=== PATIENT | male | born 1975 | race African-American/Black ===

== ENCOUNTER 2023-11-06 10:04 | Outpatient (REF) | payer MEDICARE, SELFPAY ==
[2023-11-06 11:35] LABS: MANUAL DIFF FLAG NO
[2023-11-06 12:02] LABS: Basophils Percent Auto 0.3 % (0-2); Eosinophils Absolute Auto 0.1 X10*3/uL (0.0-0.4); Eosinophils Percent Auto 1.3 % (0-4); Hematocrit 50.5 % (42.0-52.0); Hemoglobin 15.5 g/dl (14.0-18.0); Imm Gran Abs Auto 0.02 X10*3/uL (0.00-0.03); Imm Gran Pct Auto 0.3 % (0.0-0.4); Lymphocytes Absolute Auto 2.1 X10*3/uL (1.2-4.9); Lymphocytes Percent Auto 30.5 % (20-40); Mean Corpuscular HGB Conc 30.7 g/dl (31.0-36.0); Mean Corpuscular Hemoglobin 21.5 pg (27.0-33.0); Mean Corpuscular Volume 70.1 fL (80.0-98.0); Monocytes Absolute Auto 0.5 X10*3/uL (0.1-1.2); Monocytes Percent Auto 7.5 % (2-11); Neutrophils Absolute Auto 4.2 x10*3/uL (2.0-8.3); Neutrophils Percent Auto 60.1 % (45-73); Platelet Count 287 X10*3/uL (160-400); Red Cell Distribution Width 18.5 % (11.0-16.0)
[2023-11-06 12:24] LABS: Alanine Aminotransferase 16 U/L (0-40); Albumin Level 4.4 g/dL (3.5-5.0); Alkaline Phosphatase 122 U/L (39-117); Anion Gap 13 (12-20); Aspartate Amino Transferase 13 U/L (5-37); Bilirubin Total 0.6 mg/dL (0.0-1.0); Blood Urea Nitrogen 12 mg/dL (9-16); Calcium 9.6 mg/dL (8.4-10.2); Carbon Dioxide 27 mmol/L (22-29); Chloride 103 mmol/L (96-108); Cholesterol 212 mg/dL (<200); Estimated Glomerular Filt Rate > 60; Glucose Random 123 mg/dL (60-115); HDL Cholesterol 52 mg/dL (>40); LDL Cholesterol Calculated 139 mg/dL (<100); Potassium 4.4 mmol/L (3.3-5.1); Sodium 139 mmol/L (135-145); Total Protein 7.5 g/dL (6.5-8.0); Triglycerides 106 mg/dL (<150)
[2023-11-06 13:18] LABS: Creatinine Urine 86.52 mg/dL; Microalbum/Creatinine Ratio Ur 18.4 ug/mg cr (<30)
== END 2023-11-06 10:05 | disposition home or self-care (01) ==
LOC: HO.HHCL 10:04
PROVIDERS: Visit Provider Internal Medicine Geriatric Medicine
DX: Z00.00 Encounter for general adult medical examination without abnormal findings (principal); E11.9 Type 2 diabetes mellitus without complications
CPT/HCPCS: 36415; 80053; 80061; 82043; 82570; 85025

== ENCOUNTER → 2024-01-01 14:15 | Outpatient (BNVA) | payer MEDICARE, SELFPAY | PROVIDERS: PCP Internal Medicine Geriatric Medicine; Visit Provider Nurse Practitioner Family | DX: Z12.11 Encounter for screening for malignant neoplasm of colon (principal); Z86.010 Personal history of colon polyps | CPT/HCPCS: 99212 ==

== ENCOUNTER 2024-04-16 10:12 | Day surgery (SDC) | payer MEDICARE, SELFPAY ==
[2024-04-16 10:52] VITALS: BMI 36.4
--- NOTE | 2024-04-16 10:55 | P.HPSUR_ITS ---
Pre-Procedural Eval Section A - 24 Hr Update-Section A only Date of Service: 04/16/24 Section B - Complete if H&P > 30 days Chief Complaint: Encounter for screening for malignant neoplasm of Relevant Family History (Specify if Yes): No Relevant Social History: None Present Medications: see Short Stay Collaborative assessment Medical History: Significant History (DM) History of Previous Operations: Relevant previous surgery/procedure and date(s) ( Hx of colonoscopy) Allergies: Allergies Allergy/AdvReac Type Severity Reaction Status Date / Time No Known Allergies Allergy Verified 04/16/24 10:50 [No Known Allergies*] Review of Systems Sugical H&P ROS: Negative: Constitution, Cardiovascular, Respiratory, Neurological, Psychiatric, Hem-Onc, Allergic/Immunologic, Gastrointestinal, Genitourinary, Musculoskeletal, Integumentary, Endocrine and Eyes/E ars/Nose/Throat Exam Surgical H&P Exam: Normal: HEENT, Normal: Heart, Normal: Lungs, Normal: Extremities, Normal: Abdomen, Normal: Skin and Normal: Neurological Plan Diagnosis/Plan: Unchanged I have reviewed the history and physical and performed a pertinent physical examination on my patient. No changes have occurred unless specified. Time Spent With Patient Time: Total time managing care of this patient today ____ minutes.
[2024-04-16 11:23] VITALS: BP 158/92; PULSE 72; RESP 18; TEMP 36.3; O2SAT 97
[2024-04-16] MEDS: Lactated Ringers 1,000 ML 100 ML IVCONT (11:23)
[2024-04-16 11:37] LABS: Glucose, Whole Blood 168 mg/dL (60-115)
--- NOTE | 2024-04-16 11:58 | HO.ANESPROP2 ---
[facility] Past Medical History Medical History Diabetes Family History Family history of problems with anesthesia: No Surgical History Surgical History Hx of colonoscopy History of Problems with Anesthesia: No Social History Social History Patient Tobacco Use Status: Never used Tobacco Use of substances other than those prescribed or required for medical reasons: No Are you DNR?: No Advance Directives: No Advance Directives Information Provided: Yes Meds Allergies Allergy/AdvReac Type Severity Reaction Status Date / Time No Known Allergies Allergy Verified 04/16/24 10:50 [No Known Allergies*] Active Medications: Current Medications Lactated Ringer's (Lr) 1,000 mls @ 100 mls/hr IVCONT .Q10H [place] Last Admin: 04/16/24 11:23 Dose: 100 mls/hr Home Medications ?Medication ?Instructions ?Recorded ?Confirmed ?Last Taken ?Type empagliflozin 25 mg tablet 25 mg PO QAM 01/01/24 04/12/24 History (Jardiance) metformin 1,000 mg tablet 1,000 mg PO BID 01/01/24 Unknown History Exam Height,Weight and Vital Signs: Height 5 ft 9 in Weight 111.811 kg Last Vital Signs Temp 97.4 F 04/16/24 11:23 Pulse 72 04/16/24 11:23 Resp 18 04/16/24 11:23 BP 158/92 H 04/16/24 11:23 Pulse Ox 97 04/16/24 11:23 O2 Del Method Room Air 04/16/24 11:23 Pertinent Lab Results Pertinent Lab Results: Laboratory Tests 04/16/24 11:28 POC Glucose 168 H Airway Mallampati Class: II TM Dist: >3cm Neck ROM: Full Heart: rrr Lungs: cta Assessment and Plan Assessment Anesthesia Assessment: Anesthesia Plan Discussed and Chart Reviewed Final Anesthetic Review Family History of Problems with Anesthesia: No History of Problems with Anesthesia: No NPO: Yes ASA Class: II Final Preanesthetic Review: No Changes in Pt Med Stat, Meds/Allgs Chart Reviewed and Consent Obtained/Reviewed Patient Risk: Low Procedure Risk: Low Anesthetic Plan Anesthetic Plan: MAC:
--- NOTE | 2024-04-16 13:06 | HO.OPN-COLON ---
Colonoscopy Operative Note Operative Note Date of Service: 04/16/24 Narrative: Operative Information Procedure Description: Colonoscopy Indication: screening Anesthesia: MAC COLONOSCOPY Instrument: Olympus variable stiffness ADULT scope 190L Colonoscopy Monitoring: Vital signs and clinical assessment, continuous EKG monitoring, Pulse oximetry, Carbon Dioxide monitoring and blood pressure monitoring were done throughout the procedure. Colon withdrawal time was 15 minutes. Procedure: The patient was placed in the left lateral decubitis position and pre-procedure medications were administered. After a digital rectal examination of the ano-rectum, the video colonoscope was inserted into the rectum and advanced through the colon to the cecum/TI. The colonoscope was slowly withdrawn in a retrograde panoramic fashion and the colon mucosa was carefully examined including a retroflexed view of the rectum. Findings and interventions are described below. Procedure Difficulty: easy Findings: Terminal Ileum-normal Cecum:normal Ascending Colon: 15 mm sessile polyp, lifted with eleview and removed with cold snare, then x 2 clips applied for hemostasis Transverse Colon -normal Descending Colon:normal Sigmoid Colon: moderate diverticulosis Rectum: Retroflexion with small internal hemorrhoids seen, grade I Anorectum - normal Intervention: eleview injection, cold snare and clips Colon preparation: [place] Bowel Preparation Scale Right colon; 2 Transverse colon: 2 Left colon; 2 (0 = Unprepared colon segment with mucosa not seen due to solid stool that cannot be cleared. 1 = Portion of mucosa of the colon segment seen, but other areas of the colon segment not well seen due to staining, residual stool and/or opaque liquid. 2 = Minor amount of residual staining, small fragments of stool and/or opaque liquid, but mucosa of colon segment seen well. 3 = Entire mucosa of colon segment seen well with no residual staining, small fragments of stool or opaque liquid) Impression and Post Procedure Diagnosis: diverticulosis colon polyp internal hemorrhoids Plan: High fiber diet leaflet Avoid straining at stool, epsom salts and sitz bath, anusol supps or cream Repeat Colonoscopy in 1-2 years due to large polyp in mid ascending colon or earlier if clinically indicated Above findings were reviewed with the patient and relevant handouts were provided if indicated.
[2024-04-16 13:08] VITALS: BP 122/65; PULSE 81; RESP 18; TEMP 36.1; O2SAT 95
[2024-04-16 13:13] VITALS: BP 121/65; PULSE 73; RESP 18; O2SAT 96
[2024-04-16 13:18] VITALS: BP 118/68; PULSE 70; RESP 18; O2SAT 96
[2024-04-16 13:23] VITALS: BP 112/65; PULSE 72; RESP 18; TEMP 36.6; O2SAT 99
== END 2024-04-16 13:53 | disposition home or self-care (01) ==
PROVIDERS: PCP Internal Medicine Geriatric Medicine; Visit Provider Internal Medicine Gastroenterology
PROC: 0DJD8ZZ Inspection of Lower Intestinal Tract, Via Natural or Artificial Opening Endoscopic (ICD-10-PCS; CPT 45378; principal; 2024-04-16 11:50)
DX: Z12.11 Encounter for screening for malignant neoplasm of colon (principal); Z86.010 Personal history of colon polyps; D12.2 Benign neoplasm of ascending colon; K57.30 Diverticulosis of large intestine without perforation or abscess without bleeding; K64.0 First degree hemorrhoids; E11.9 Type 2 diabetes mellitus without complications; Z79.84 Long term (current) use of oral hypoglycemic drugs
CPT/HCPCS: 45385; 45381; 82947; 88305; J2704

== ENCOUNTER → 2024-04-16 10:12 | Outpatient (BNV) | payer MEDICARE, SELFPAY | PROVIDERS: PCP Internal Medicine Geriatric Medicine; Visit Provider Internal Medicine Gastroenterology | DX: Z12.11 Encounter for screening for malignant neoplasm of colon (principal); K63.5 Polyp of colon; K57.30 Diverticulosis of large intestine without perforation or abscess without bleeding; K64.0 First degree hemorrhoids | CPT/HCPCS: 45381; 45385 ==

== ENCOUNTER 2024-12-11 07:57 | Outpatient (REF) | payer MEDICARE, SELFPAY ==
--- OUTSIDE RECORDS SUMMARY | 2024-12-11 08:04 | XMS_ITS | Encounter Summary ---
Author Organization [facility] Address [address] [place] [address] 7 [place] [address] Care Team Providers Care Solar Fabrication Technician Name Role Phone Name, Eugenio ANDERSON Primary Care Provider [phone] Reason for Visit * Reason Onset Date Comments Med Refill 10/24/2023 Encounter Details Date Type Department Care Team (Late st Contact Info) Description 10/24/2023 Refill [facility] [address] [place] [phone] NameEugenio MD [address] [place] [phone] Social History Tobacco Use Types Packs/Day Years Used Date Smoking Tobacco: Never Assessed Sex and Gender Information Value Date Recorded Sex Assigned at Male 08/14/2022 10:20 AM EDT Legal Sex Male 10:20 AM EDT Gender Identity Male 08/14/2022 10:20 AM EDT Sexual Orientation Straight 08/14/2022 10 :20 AM EDT documented as of this encounter Plan of Treatment Upcoming Encounters Date Type Department Care Team (Late st Contact Info) Description 12/15/2024 2:45 PM EST Office Visit [facility] [address] [place] [phone] Eugenio Parry MD [address] [place] [phone] documented as of this encounter Visit Diagnoses Not on filedocumented in this encounter Care Teams Solar Fabrication Technician Relationship Specialty Start Date End Date NameEugenio MD [address] [place] [phone] PCP - General Family Medicine 12/30/20 documented as of this encounter
--- OUTSIDE RECORDS SUMMARY | 2024-12-11 08:04 | XMS_ITS | Encounter Summary ---
Author Organization [employer] Address [address] [facility] 7t [place] [address] Care Team Providers Care Travel Accommodation Inspector Name Role Phone Name, Eugenio ANDERSON Primary Care Provider [phone] Reason for Visit * Reason Onset Date Comments Med Refill 10/30/2023 Encounter Details Date Type Department Care Team ([facility] st Contact Info) Description 10/30/[address] [facility] [address] [place], [place] [phone] Name, MD Eugenio [address] [place] [address] Social History Tobacco Use Types Packs/Day Years Used Date Smoking Tobacco: Never Assessed Housing Stability Answer Date Recorded What is your housing situation today? I have loy ceja 10/31/[address] you li ve. Do you have problems with any of the following? None of the above 10/31/2023 Food Insecurity Answer Date Recorded Within the past 12 months, y ou worried that your food would run out before you got money to buy more: Never True 10/31/2023 Within the past 12 months,th e food you bought just didn't last and you didn't have enough money to get more: Never True Transportation Answer Date Recorded In the past 12 months, has l ack of transportation kept you from medical appts, meetings, work or from getting things needed for daily living? No 10/31/2023 Utilities Answer Date Recorded In the past 12 months, has t he electric, gas, oil or water company threatened to shut off services in your home? No 10/31/2023 Sex and Gender Information Value Date Recorded Sex Assigned at Male 08/14/2022 10:20 AM EDT Legal Sex Male 10:20 AM EDT Gender Identity Male 08/14/2022 10:20 AM EDT Sexual Orientation Straight 08/14/2022 10 :20 AM EDT documented as of this encounter Plan of Treatment Upcoming Encounters Date Type Department Care Team (Late st Contact Info) Description 12/15/2024 2:45 PM EST Office Visit [facility] [address] [place] [phone] Name, MD Eugenio [address] [place] [phone] documented as of this encounter Visit Diagnoses Not on filedocumented in this encounter Care Teams Travel Accommodation Inspector Relationship Specialty Start Date End Date Name, MD Eugenio [address] [place] [phone] PCP - General Family Medicine 12/30/20 documented as of this encounter
--- OUTSIDE RECORDS SUMMARY | 2024-12-11 08:04 | XMS_ITS | Encounter Summary ---
Author Organization [facility] Address [address] [facility] 7t [place] [address] Care Team Providers Care Porter Marina Name Role Phone Name, Eugenio ANDERSON Primary Care Provider [phone] Reason for Visit * Reason Comments Med Refill Encounter Details Date Type Department Care Team ([facility] st Contact Info) Description 11/20/2024 Refill [facility] [address] [place], [place] [phone] Name, MD Eugenio [address] [place] [address] Social History Tobacco Use Types Packs/Day Years Used Date Smoking Tobacco: Never Smokeless Tobacco: Never Alcohol Use Standard Drinks/Week Comments Never 0 (1 standard drink = 0.6 oz pur e alcohol) Depression Answer Date Recorded Patient Health Questionnaire-9 Score 0 11/06/2023 Patient Health Questionnaire-9 Score 0 11/06/2023 Last PHQ-9: Questionnaire Data Not on file 0 11/06/2023 Housing Stability Answer Date Recorded What is [...] off services in your home? No 10/31/2023 Depression Answer Date Recorded Patient Health Questionnaire-2 Score 0 11/06/2023 Sex and Gender Information Value Date Recorded Sex Assigned at Male 08/14/2022 10:20 AM EDT Legal Sex Male 10:20 AM EDT Gender Identity Male 08/14/2022 10:20 AM EDT Sexual Orientation Straight 08/14/2022 10 :20 AM EDT documented as of this encounter Plan of Treatment Upcoming Encounters Date Type Department Care Team (Late st Contact Info) Description 12/15/2024 2:45 PM EST Office Visit [facility] [address] [place] [phone] Name, MD Eugenio [address] [place] [phone] documented as of this encounter Visit Diagnoses Not on filedocumented in this encounter Additional Health Concerns Assessment Noted Time PHQ-9 Depression Total Score: 0 11/06/19 24 9:27 AM EST documented as of this encounter Care Teams Porter Marina Relationship Specialty Start Date End Date NameEugenio MD [address] [place] [phone] PCP - General Family Medicine 12/30/20 documented as of this encounter
--- OUTSIDE RECORDS SUMMARY | 2024-12-11 08:04 | XMS_ITS | Encounter Summary ---
Author Organization [employer] Address [address] [facility] 7t [place] [address] Care Team Providers Care Circulation Librarian Name Role Phone Name, Eugenio ANDERSON Primary Care Provider Encounter Details Date Type Department Care Team (Late st Contact Info) Description 04/24/2023 Orders Only [facility] [address] [place] [address] Kathryn West LPN Social History Tobacco Use Types Packs/Day Years [...] Description 12/15/2024 2:45 PM EST Office Visit [facility] [address] [place] [address] Eugenio Parry MD [address] [place] [address] documented as of this encounter Visit Diagnoses Not on filedocumented in this encounter Care Teams Circulation Librarian Relationship Specialty Start Date End Date Eugenio Parry MD [address] [place] [address] PCP - General Family Medicine 12/30/20 documented as of this encounter
--- OUTSIDE RECORDS SUMMARY | 2024-12-11 08:04 | XMS_ITS | Encounter Summary ---
Author Organization [facility] Address [address] [place] [address] 7t [place] [address] Care Team Providers Care Tamping Machine Operator Road Forms Name Role Phone Name, Eugenio ANDERSON Primary Care Provider [phone] Encounter Details Date Type Department Care Team (Late st Contact Info) Description 03/19/2023 Abstract [facility] [address] [place] [phone] NameEugenio MD [address] [place] [phone] Social History Tobacco Use Types Packs/Day Years [...] Description 12/15/2024 2:45 PM EST Office Visit [facility] [address] [place] [address] [phone] NameEugenio MD [address] [place] [address] [phone] documented as of this encounter Procedures Procedure Name Priority Date/Time Associated Diagnosis Comments COLONOSCOPY Routine 07/03/2017 12:39 PM EDT documented in this encounter Results * Colonoscopy (07/03/2017 12:39 PM EDT) Colonoscopy Normal Normal Narrative Ann King - 07/03/2017 12:39 PM EDT Recommended 5 year follow up us Historical Provider HEALTH MAINTENANCE Final Result documented in this encounter Visit Diagnoses Not on filedocumented in this encounter Care Teams Tamping Machine Operator Road Forms Relationship Specialty Start Date End Date Name, MD Eugenio [address] [place] [address] PCP - General Family Medicine 12/30/20 documented as of this encounter
--- OUTSIDE RECORDS SUMMARY | 2024-12-11 08:04 | XMS_ITS | Clinical Summary ---
Author Organization [employer] Address [address] [facility] 7t [place] [address] Care Team Providers Care Dry Kiln Loader Name Role Phone Name, Eugenio ANDERSON Primary Care Provider [phone] Allergies No known active allergies Medications metFORMIN (Glucophage) 1000 MG tablet TAKE 1 TABLET BY MOUTH TWICE A DAY WITH BREAKFAST AND DINNER 180 tablet 3 09/15/20 24 Active Jardiance 25 MG TAKE 1 TABLET BY MOUTH EVERY DAY IN THE MORNING 30 tablet 11 11/20/19 25 Active empagliflozin (Jardiance) 25 MG Take 1 tablet (25 mg) by mouth in the morning. 30 tablet 11 11/06/19 24 025 Discontinued Active Problems Problem Noted Date Diagnosed Date Hypercholesterolemia 11/06/2023 11/06/2023 Tubular adenoma 11/06/2023 Overview (11/06/2023): Removed by colonoscopy [place] [facility] Essential hypertension 05/10/2016 4 Plantar fasciitis 05/10/2016 11/06/2023 Type 2 diabetes mellitus 05/10/2016 024 Encounters Date Type Department Care Team Description 12/05/2024 Patient Outreach [facility] [address] [place] [address] Eugenio Parry MD Pre-visit Planning (SDOH negative, Tobacco screening negative. ) 11/20/2024 Refill [facility] [address] [place] [address] Eugenio Parry MD 09/13/2024 Refill [facility] [address] [place], [place] [phone] Name, MD Eugenio from Last 3 Months Immunizations Name Administration Dates Next Due Influenza injectable quadrivalent preservative f ree 07/22/2015 Influenza, IIV3, injectable 07/22/2015, 4 Tdap 06/22/2010 Social History Tobacco Use Types Packs/Day Years Used Date Smoking Tobacco: Never Smokeless Tobacco: Never Tobacco Cessation:Counseling Given: Not Answered Alcohol Use Standard Drinks/Week Comments Never 0 (1 standard drink = 0.6 oz pur e alcohol) Depression Answer Date Recorded Patient Health Questionnaire-9 Score 0 11/06/2023 Patient Health Questionnaire-9 Score 0 11/06/2023 Last PHQ-9: Questionnaire Data Not on file 0 11/06/2023 Housing Stability Answer Date Recorded What is your housing situation today? I have loy ceja 12/05/[address] you li ve. Do you have problems with any of the following? None of the above 12/05/2024 Food Insecurity Answer Date Recorded Within the past 12 months, y ou worried that your food would run out before you got money to buy more: Never True 12/05/2024 Within the past 12 months,th e food you bought just didn't last and you didn't have enough money to get more: Never True Transportation Answer Date Recorded In the past 12 months, has l ack of transportation kept you from medical appts, meetings, work or from getting things needed for daily living? No 12/05/2024 Utilities Answer Date Recorded In the past 12 months, has t he electric, gas, oil or water company threatened to shut off services in your home? No 12/05/2024 Depression Answer Date Recorded Patient Health Questionnaire-2 Score 0 11/06/2023 Internet Access Answer Date Recorded Internet Access Q1 Yes 12/05/2024 Internet Access Q2 Not on file 12/05/2024 Sex and Gender Information Value Date Recorded Sex Assigned at Male 08/14/2022 10:20 AM EDT Legal Sex Male 10:20 AM EDT Gender Identity Male 08/14/2022 10:20 AM EDT Sexual Orientation Straight 08/14/2022 10 :20 AM EDT Last Filed Vital Signs Vital Sign Reading Time Taken Comments Blood Pressure 161/82 01/08/2024 3:41 PM EDT Pulse 85 01/08/2024 3:41 PM EDT Temperature 36.2 ??C (97.1 ??F) 01/08/2024 3:41 PM ED T Respiratory Rate 16 01/08/2024 3:41 PM EDT Oxygen Saturation 98% 01/08/2024 3:41 PM EDT Inhaled Oxygen Concentration - - Weight 113 kg (249 lb 6.4 oz) 03/27/2024 10:01 A M EDT Height 179.5 cm (5' 10.67 ) 03/27/2024 10:01 AM EDT Body Mass Index 35.11 03/27/2024 10:01 AM EDT Plan of Treatment Upcoming Encounters Date Type Department Care Team (Late st Contact Info) Description 12/15/2024 2:45 PM EST Office Visit [facility] [address] [place], [place] [phone] Name, MD Eugenio [address] [place] [address] Health Maintenance Due Date Last Done Comments CT Colonography 1975 FIT DNA/Cologuard 1975 FIT 1975 FOBT 1975 HIV Screening 1975 Sigmoidoscopy 1975 Eye Exam 1985 Alcohol/Substance Use Screening 1987 Family Planning (PISQ) 1990 Hepatitis C Screening 1993 Hepatitis B Vaccines (1 of 3 - 19+ 3-dose series) 1994 Pneumococcal Vaccine: Pediatrics (0 to 5 Years) and At-Risk Patients (6 to 49) Years) (1 of 2 - PCV) 1994 DTaP/Tdap/Td Vaccines (2 - Td or Tdap) 06/22/2020 06/22/2010 Diabetes: Hemoglobin A1C 02/05/2024 11/06/2023 COVID-19 Vaccine (3 - season) 2024 03/24/2021, 03/03/2021 Influenza Vaccine (#1) 2024 5, 07/22/2015, 07/21/2014 Depression Screening 11/06/2024 11/06/2023, 11/06/19 24 Diabetes: Urine Protein Screening 11/06/2024 11/06/2023, 02/24/2022, 12/29/2020 Lipid Panel 11/06/2024 11/06/2023, 02/12, 05/30/2021, Additional history exists Diabetes: Foot Exam 01/07/2025 01/08/2024, 01/08/2024, 01/08/2024, Additional history exists Tobacco Screening 01/07/2025 01/08/2024 Zoster Vaccines (1 of 2) 2025 SDOH Screening 12/05/2025 12/05/2024 Colonoscopy 04/16/2026 04/16/2024, 07/03/2017 Colorectal Cancer Screening 04/16/2026 RSV Patients and Patients Aged 60 years or older (1 - 1-dose 75+ series) 2050 HIB Vaccines Aged Out No longer eligi ble based on patient's age to complete this topic HPV Vaccines Aged Out No longer eligi ble based on patient's age to complete this topic Hepatitis A Vaccines Aged Out No long er eligible based on patient's age to complete this topic IPV Vaccines Aged Out No longer eligi ble based on patient's age to complete this topic Meningococcal Vaccine Aged Out No hayden zenobia eligible based on patient's age to complete this topic RSV under 20 months Aged Out No longe r eligible based on patient's age to complete this topic Rotavirus Vaccines Aged Out No longer eligible based on patient's age to complete this topic Procedures Procedure Name Priority Date/Time Associated Diagnosis Comments HM COLONOSCOPY Routine 04/16/2024 ALBUMIN, RANDOM URINE W/CREATININE Routine 11/06/2023 10:06 AM EST Type 2 diabetes mellitus without complication, without long-term current use of insulin (CMS/[facility]) PE (physical exam), annual LIPID PANEL, STANDARD Routine 11/06/2023 10:06 AM EST Type 2 diabetes mellitus without complication, without long-term current use of insulin (CMS/[facility]) PE (physical exam), annual POCT GLYCATED HEMOGLOBIN, TOTAL Routine 11/06/2023 9:59 AM EST Type 2 diabetes mellitus without complication, without long-term current use of insulin ([facility]) PE (physical exam), annual from Last 3 Months or Most Recently Relevant to Health Maintenance Results * (ABNORMAL) Colonoscopy (04/16/2024) Colonoscopy Abnormal(A ) Normal us Eugenio Parry MD HEALTH MAINTENANCE Final Result * Albumin, Random Urine W/Creatinine (11/06/2023 10:06 AM EST) Pathologist [facility] Creatinine, Urine 86.52 mg/dL [facility] Microalbumin Urine 16.0 mg/L [facility] Microalbum Creatinine Ratio Ur 18.4 <30 ug/mg cr [facility] Comment:Albumin/Creatinine R atio Reference Ranges: Normal: < 30 ug/mg creatinine Microalbuminuria: 30 - 300 ug/mg creatinineClinical Albuminuria: > 300 ug/mg creatinine Urine (Urine, Random) 11/06/2023 10:06 AM EST 11/06/2023 11:23 AM EST us Eugenio Parry MD LAB URINE ORDERABLES Final Resul t [facility] [address] [place] [phone] * (ABNORMAL) Lipid Panel, Standard (11/06/2023 10:06 AM EST) Triglycerides 106 <150 mg/dL [facility] Comment:Desirable Triglyceri de: less than 150 mg/dLBorderline High Triglyceride 150-199 mg/dLHigh Triglyceride: 200-499 mg/dLVery High Triglyceride: greater than or equal to 5OO mg/dL Cholesterol 212(H) <200 mg/dL [facility] Comment:Desirable Cholestero l: less than 200 mg/dLBorderline High Cholesterol: 200-239 mg/dLHigh Cholesterol: greater than 239 mg/dL LDL Cholesterol Calculated 139(H) <100 mg/dL [facility] Comment:Desirable LDL: less than 100 mg/dLNear Optimal/Above Optimal LDL: 110- 129 mg/dLBorderline High LDL: 130-159 mg/dLHigh LDL: 160-189 mg/dLVery High LDL: greater than or equal to 190 mg/dL HDL Cholesterol 52 >40 mg/dL [facility] Comment:Desirable HDL: great er than 40 mg/dL Note: This HDL assay may give artificially low results in patients with liver disease. Blood Venous blood specimen / Unknown 11/06/2023 10:06 AM EST 11/06/2023 11:27 AM EST us Eugenio Parry MD LAB BLOOD ORDERABLES Final Resul t Performing Organization Address City/State/[facility] Co de Phone Number [facility] [address] [place] [phone] * (ABNORMAL) POCT HGB A1C (11/06/2023 9:59 AM EST) Hemoglobin A1C 8.8(A) 4.0 - 6.0 % Other 11/06/2023 9:59 AM EST us Eugenio Parry MD POINT OF CARE TEST ENTER/EDIT OR DERABLES Final Result from Last 3 Months or Most Recently Relevant to Health Maintenance Insurance [facility] Care Teams Dry Kiln Loader Relationship Specialty Start Date End Date Name, MD Eugenio [address] [place] [phone] PCP - General Family Medicine 12/30/20
--- OUTSIDE RECORDS SUMMARY | 2024-12-11 08:04 | XMS_ITS | Encounter Summary ---
Author Organization [employer] Address [address] [facility] [address] [place] [address] Care Team Providers Care Secretarial Stenographer Name Role Phone Name, Eugenio ANDERSON Primary Care Provider [phone] Reason for Visit * Reason Comments Pre-visit Planning SDOH negative, Tobac co screening negative. Encounter Details Date Type Department Care Team ([facility] Contact Info) Description 12/05/2024 Patient Outreach [facility] [address] [place] [address] Name, MD Eugenio [address] [place] [address] Pre-visit Planning (SDOH negative, Tobacco screening negative. ) Social History Tobacco Use Types Packs/Day Years [...] AM EDT documented as of this encounter Progress Notes * Suha Wylie - 12/05/2024 11:39 AM EST CC Suha Leblanc placed successful outbound call to patient for pre-visit planning. Patient name and confirmed. Patient confirms appt date and time, and has transportation arrangements. Biggest concern for appointment at this time is no concerns. Appropriate screenings completed in anticipation ofappointment. documented in this encounter Plan of Treatment Upcoming Encounters Date Type Department Care Team (Late st Contact Info) Description 12/15/2024 2:45 PM EST Office Visit [facility] MED[facility] [address] [place] [address] Name, MD Eugenio [address] [place] [address] documented as of this encounter Visit Diagnoses Not on filedocumented in this encounter Additional Health Concerns Assessment Noted Time PHQ-9 Depression Total Score: 0 11/06/19 24 9:27 AM EST documented as of this encounter Care Teams Secretarial Stenographer Relationship Specialty Start Date End Date NameEugenio MD [address] [place] [address] PCP - General Family Medicine 12/30/20 documented as of this encounter
--- OUTSIDE RECORDS SUMMARY | 2024-12-11 08:04 | XMS_ITS | Encounter Summary ---
Author Organization [employer] Address [address] [facility] [address] [place] [address] Care Team Providers Care Qa Developer Name Role Phone Name, Eugenio ANDERSON Primary Care Provider [phone] Encounter Details Date Type Department Care Team (Late st Contact Info) Description 09/14/2023 Orders Only [facility]EDS [address] [place] [address] Kathryn West LPN Social History Tobacco Use [...] Description 12/15/2024 2:45 PM EST Office Visit [facility] MEDICINE [address] [place] [address] Eugenio Parry MD [address] [place] [address] documented as of this encounter Visit Diagnoses Not on filedocumented in this encounter Care Teams Qa Developer Relationship Specialty Start Date End Date Eugenio Parry MD [address] [place] [address] PCP - General Family Medicine 12/30/20 documented as of this encounter
[2024-12-11 12:12] LABS: Alanine Aminotransferase 20 U/L (0-40); Albumin Level 4.4 g/dL (3.5-5.0); Alkaline Phosphatase 93 U/L (39-117); Anion Gap 14 (12-20); Aspartate Amino Transferase 21 U/L (5-37); Bilirubin Total 0.5 mg/dL (0.0-1.0); Blood Urea Nitrogen 13 mg/dL (9-16); Calcium 9.2 mg/dL (8.4-10.2); Carbon Dioxide 22 mmol/L (22-29); Chloride 106 mmol/L (96-108); Cholesterol 200 mg/dL (<200); Estimated Glomerular Filt Rate > 60; Glucose Random 106 mg/dL (60-115); HDL Cholesterol 42 mg/dL (>40); LDL Cholesterol Calculated 137 mg/dL (<100); Potassium 4.2 mmol/L (3.3-5.1); Sodium 138 mmol/L (135-145); Total Protein 7.5 g/dL (6.5-8.0); Triglycerides 108 mg/dL (<150)
== END 2024-12-11 07:58 | disposition home or self-care (01) ==
LOC: HO.HHCL 07:57
PROVIDERS: Visit Provider Internal Medicine Geriatric Medicine
DX: E11.9 Type 2 diabetes mellitus without complications (principal); I10 Essential (primary) hypertension; E78.00 Pure hypercholesterolemia, unspecified
CPT/HCPCS: 36415; 80053; 80061

== ENCOUNTER 2025-03-20 11:37 | Outpatient (REF) | payer MEDICARE, SELFPAY ==
--- OUTSIDE RECORDS SUMMARY | 2025-03-20 12:21 | XMS_ITS | Encounter Summary ---
Author Organization [employer] Address [address] [facility] [address] [place] [address] Care Team Providers Care Commutator Presser Name Role Phone Name, Eugenio ANDERSON Primary Care Provider [phone] Encounter Details Date Type Department Care Team (Late st Contact Info) Description 09/14/2023 Orders Only [facility] PEDS [address] [place] [address] Kathryn West LPN Social History Tobacco Use [...] Care Team (Late st Contact Info) Description 04/01/2025 4:00 PM EDT Office Visit [facility] MEDICINE [address] [place] [address] Eugenio Parry MD [address] [place] [address] documented as of this encounter Visit Diagnoses Not on filedocumented in this encounter Care Teams Commutator Presser Relationship Specialty Start Date End Date Eugenio Parry MD [address] [place] [address] PCP - General Family Medicine 12/30/20 documented as of this encounter
[2025-03-20 14:04] LABS: Creatinine Urine 102.84 mg/dL; Microalbum/Creatinine Ratio Ur 16.5 ug/mg cr (<30)
== END 2025-03-20 11:38 | disposition home or self-care (01) ==
LOC: HO.HHCL 11:37
PROVIDERS: Visit Provider Internal Medicine Geriatric Medicine
DX: E11.9 Type 2 diabetes mellitus without complications (principal)
CPT/HCPCS: 82043; 82570